=== PATIENT | female | born 1970 | race Caucasian/White ===

== ENCOUNTER 2023-07-06 08:09 | Outpatient (CLI) | payer BC | END 2023-07-06 08:10 | disposition home or self-care (01) | LOC: CSHMAMMO 08:09 | PROVIDERS: ATTEND Physician Assistant | DX: Z12.31 Encounter for screening mammogram for malignant neoplasm of breast (principal); Z80.3 Family history of malignant neoplasm of breast; Z98.82 Breast implant status | CPT/HCPCS: 77063; 77067 ==